=== PATIENT | female | born 1985 | race Caucasian/White ===

== ENCOUNTER 2017-12-15 19:26 | Outpatient (CLI) | END 2017-12-16 00:48 | disposition home or self-care (01) ==

== ENCOUNTER 2018-01-15 10:16 | Outpatient (CLI) | END 2018-01-15 12:40 | disposition home or self-care (01) ==

== ENCOUNTER 2018-01-30 03:10 | Inpatient (IN) | END 2018-02-03 14:26 | disposition home or self-care (01) | DRG 766 ==